=== PATIENT | male | born 1955 | race African-American/Black ===

== ENCOUNTER 2020-03-14 16:45 | Emergency (ER) | payer SELFPAY ==
[~2020-03-14] VITALS: Ht 170.2 cm; Wt 61.0 kg
[2020-03-14 18:31] LABS: HEMATOCRIT. 30.7 % (42.0-52.0); HEMOGLOBIN. 9.8 g/dL (14.0-18.0); MEAN CORPUSCULAR HEMOGLOBIN 20.5 pg (28.0-32.0); MEAN CORPUSCULAR VOLUME 64.2 fL (80.0-94.0); MEAN PLATELET VOLUME 9.1 fl (7.4-10.4); PLATELET 365 x1000/uL (130-400); RED BLOOD CELL COUNT 4.79 mill/uL (4.7-6.1); RED CELL DISTRIBUTION WIDTH 20.2 % (11.6-14.6)
[2020-03-14 18:40] LABS: CHLORIDE 107 mEq/L (98-107)
[2020-03-14 18:48] LABS: CREATINE KINASE 107 IU/L (39-308)
[2020-03-14 18:53] LABS: ETHANOL BLOOD 387 mg/dL
[2020-03-14 19:01] LABS: CLARITY URINE CLEAR (CLEAR); COLOR URINE YELLOW (YELLOW); KETONES URINE NEGATIVE (NEGATIVE); LEUKOCYTE ESTERASE URINE 2+ (NEGATIVE); NITRITE URINE NEGATIVE (NEGATIVE); OCCULT BLOOD URINE NEGATIVE (NEGATIVE); PROTEIN URINE NEGATIVE (NEGATIVE); SPECIFIC GRAVITY URINE 1.007 (1.005-1.030); UROBILINOGEN URINE 0.2 E.U./dL (0.2-1.0)
[2020-03-14] MEDS ORDERED: CEFTRIAXONE 1 G PREMIX 50 ML IV ONE (19:30)
[2020-03-14 19:43] LABS: *BARBITURATES SCREEN URINE NEGATIVE (NEGATIVE)
[2020-03-14 19:44] LABS: *AMPHETAMINES SCREEN URINE NEGATIVE (NEGATIVE); *BENZODIAZEPINES SCREEN URINE NEGATIVE (NEGATIVE); *COCAINE SCREEN URINE NEGATIVE (NEGATIVE); METHADONE URINE SCREEN NEGATIVE (NEGATIVE); OPIATES URINE SCREEN NEGATIVE (NEGATIVE)
[2020-03-14 19:45] LABS: PHENCYCLIDINE URINE SCREEN NEGATIVE (NEGATIVE)
[2020-03-14 19:49] LABS: PLATELET ESTIMATE NORMAL
[2020-03-14 20:01] LABS: CANNABINOID URINE SCREEN NEGATIVE (NEGATIVE)
[2020-03-14 23:59] VITALS: BP 105/60
== END 2020-03-15 00:26 | disposition home or self-care (01) ==
LOC: ER 16:45
DX: T51.0X1A Toxic effect of ethanol, accidental (unintentional), initial encounter (principal); N30.00 Acute cystitis without hematuria; Y90.8 Blood alcohol level of 240 mg/100 ml or more; Y92.488 Other paved roadways as the place of occurrence of the external cause
CPT/HCPCS: 36415; 70450; 71045; 80053; 80305; 80320; 81003; 82550; 82962; 84484; 85025; 87077; 87086; 87186; 93005; 96365; 96366; 99285; J0696; G0480